=== PATIENT | male | born 1960 | race Caucasian/White ===

== ENCOUNTER 2023-11-18 14:39 | Outpatient (AMB) | payer OTHER, SELFPAY ==
--- NOTE | 2023-11-18 14:41 | MHC.OFFVIS ---
Intake Vital Signs 11/18/23 14:52 Height 5 ft 11 in Weight 166 lb BMI 23.1 BP 142/75 H Blood Pressure Location Rt brachial Position Sitting Pulse 113 H Intake Visit Reasons: Fibroma, right wrist & left ankle Intake Note: Patient referred by pcp Dr. Ventura for fibromas on Rt wrist and Lt ankle. Both lesions present for 1yr. Patient c/o: lesion on ankle gets irritated when wearing boots. Denies bleeding, itch, pain. No hx of skin ca. 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 Cystic mass involving the dorsum of right hand 2. Nodule involving left ankle area The hand lesion has been present for long duration. He would like to have removed. The left ankle lesion has been there for many years time. He would like to have evaluated. Chart was reviewed patient evaluated [facility] Medical History (Updated 11/18/23 @ 14:50 by STORM Saravia) Diabetes mellitus Social History (Updated 11/18/23 @ 14:51 by STORM Saravia) Alcohol intake: current Alcohol intake frequency: holidays/special occasions only Alcohol type: beer Tobacco use type: Cigarette Cigarettes Per Day: 10 Physical Exam Vital Signs: Last Vital Signs Pulse 113 H 11/18/23 14:52 BP 142/75 H 11/18/23 14:52 BMI result Body Mass Index 23.1 Extrem Other: Approximately 2 x 2 cm dorsum lateral aspect of hand soft tissue mass consistent with lipoma. Left ankle area demonstrates a small indurated area along the vein in the descending the of the medial malleolus. 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 To arrange for excision of the right dorsum hand lesion when it is convenient for the patient. I was unable to do it today because I have and emergency or add on case. 2. Left ankle process has been there for many years time and is involved with the superficial vein. Current plan is to treat this conservatively. All questions answered. Arrangements were made for the patient as noted above. Coding Level of Care Code New Pt Level 4 (49451) Diagnoses Lipoma D17.9 Superficial skin lesion L98.9
[2023-11-18 14:52] VITALS: BP 142/75; PULSE 113; BMI 23.1
== END 2023-11-18 15:08 | disposition home or self-care (01) ==
PROVIDERS: PCP Internal Medicine; Visit Provider Surgery
DX: D17.9 Benign lipomatous neoplasm, unspecified (principal); L98.9 Disorder of the skin and subcutaneous tissue, unspecified
CPT/HCPCS: 99204

== ENCOUNTER → 2023-11-18 14:39 | Outpatient (BNVA) | payer OTHER, SELFPAY | PROVIDERS: PCP Internal Medicine; Visit Provider Surgery | DX: D17.9 Benign lipomatous neoplasm, unspecified (principal); L98.9 Disorder of the skin and subcutaneous tissue, unspecified | CPT/HCPCS: 99202 ==

== ENCOUNTER 2023-12-11 15:05 | Outpatient (AMB) | payer OTHER, SELFPAY ==
[2023-12-11 15:13] VITALS: BP 145/90; PULSE 103; BMI 23.1
--- NOTE | 2023-12-11 15:13 | A.OFFVIS_ITS ---
Intake Vital Signs 12/11/23 15:13 Height 5 ft 11 in Weight 166 lb BMI 23.1 BP 145/90 H Blood Pressure Location Rt brachial Position Sitting Pulse 103 H Intake Visit Reasons: Exc right wrist fibroadenoma Intake Note: Patient here for excision on Rt wrist for fibroadenoma. 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 Patient was seen last week and is scheduled today for the procedure. Risks, benefits, alternatives were reviewed the patient and included but not limited to bleeding, infection, recurrence, numbness, pain, scarring the patient was to proceed. All questions answered. [facility] Medical History Diabetes mellitus Social History Alcohol intake: current Alcohol intake frequency: holidays/special occasions only Alcohol type: beer Tobacco use type: Cigarette Cigarettes Per Day: 10 Physical Exam Vital Signs: Last Vital Signs Pulse 103 H 12/11/23 15:13 BP 145/90 H 12/11/23 15:13 BMI result Body Mass Index 23.1 Office Procedures Excision Details: After appropriate positioning, patient is dorsum right hand underwent 1% lidocaine and Betadine prep and a transverse incision made over the cyst in question which was carried down through skin, subcutaneous tissue, and uneventful enucleation of a cystic mass measuring approximately 3 x 2 cm. Specimen sent to pathology. Wound was irrigated, secured hemostasis, and closed using running subcuticular 3-0 Vicryl suture followed by Steri-Strips and sterile dressings. Patient tolerated procedure well. [id number]-[id number] scalp/neck/hands/feet/genitalia 2.1cm-3cm Procedure code (CPT) selection complete Office Meds lidocaine 1 %-epinephrine 1:100,000 injection solution Performing Provider: Neil Salamanca MD Performing [place] [facility] [place] [facility] Administered by: Neil Salamanca MD on 12/12/23 13:13 Dose Route Admin Location Dispensed Lot Number Expiration Date [facility] Director Cardiology 10 mL Infiltration 10 mL Assessment & Plan Assessment & Plan (1) Superficial skin lesion: Code(s): L98.9 - Disorder of the skin and subcutaneous tissue, unspecified Plan: Patient has been given local instructions including keeping the area clean, minimizing use of the hand, ice periodically, tivs-cry-jdssuis analgesia, and the patient will see me as directed or p.r.n.. All questions answered. Orders: Orders Surgical 12/11/23 D17.9 - Benign lipomatous neoplasm, unspecified, L98.9 - Disorder of the skin and subcutaneous tissue, unspecified AMB Excision 12/11/23 L98.9 - Disorder of the skin and subcutaneous tissue, unspecified Coding Level of Care Code Est Pt Level 5 (88264) Diagnoses Superficial skin lesion L98.9 CPT Codes Scalp/Neck/Hands/Feet/Genetalia - CPT: 65993-Kdpxggsm scalp/neck/hands/feet/genitalia 2.1cm-3cm ([id number])
== END 2023-12-11 15:32 | disposition home or self-care (01) ==
PROVIDERS: PCP Internal Medicine; Visit Provider Surgery
DX: D21.11 Benign neoplasm of connective and other soft tissue of right upper limb, including shoulder (principal)
CPT/HCPCS: 11422

== ENCOUNTER 2023-12-11 15:05 | Outpatient (REF) | payer OTHER, SELFPAY | END 2023-12-11 15:06 | disposition home or self-care (01) | LOC: HO.LNP 15:05 | PROVIDERS: PCP Internal Medicine; Visit Provider Surgery | DX: D21.11 Benign neoplasm of connective and other soft tissue of right upper limb, including shoulder (principal); Z79.899 Other long term (current) drug therapy | CPT/HCPCS: 11422; 88304; 88307 ==